=== PATIENT | female | born 2000 | race Caucasian/White ===

== ENCOUNTER 2022-05-14 12:02 | Observation (INO) ==
[2022-05-14 13:11] LABS: Appearance Urine Cloudy (Clear); Bacteria Urine Automated 1+ (Negative); Bilirubin Urine Negative (Negative); Blood Urine Trace (Negative); Color Urine Dark Yellow; Epithelial Cell Urine Auto >30 /lpf (0-5); Glucose Urine UA Negative (Negative); Ketones Urine Trace (Negative); Leukocyte Esterase Urine 1+ (Negative); Nitrite Urine Negative (Negative); Protein Urine 1+ (Negative); Specific Gravity Urine 1.031 (1.000-1.030); Urobilinogen Urine Negative (Negative); WBC Urine Automated >30 /hpf (0-5); pH Urine 5.5 (4.5-7.5)
[2022-05-14 13:17] LABS: Albumin Globulin Ratio 1.2 (0.9-2); Albumin Level 4.1 gm/dl (3.4-5.0); BUN Creatinine Ratio 10.8 (10-20); Bilirubin,Total 0.5 mg/dl (0.2-1.0); Calcium 9.3 mg/dl (8.5-10.1); Creatinine Clr Calc Pharmacy 151.6 ml/min; Est GFR (African American) 116.8 ml/min; Est GFR (Non-African American) 100.8 ml/min; Globulin 3.4 gm/dl (2.5-4.0); Potassium 4.2 mmol/L (3.5-5.1); Total Protein 7.5 gm/dl (6.0-8.3)
[2022-05-14] MEDS ORDERED: SODIUM CHLORIDE 0.9% 1000ML 2,000 ML IV ONE (14:49)
[2022-05-14] MEDS ORDERED: cefTRIAXone SODIUM 2,000 MG/70 ML BAG IV STA (14:49)
--- NOTE | 2022-05-14 14:51 | Emergency Department Note ---
Impression & Plan Sepsis, Acute pyelonephritis, Leukocytosis ED Provider Note NAME: ADRIANA DILL AGE: 22 SEX: F : 2000 ARRIVES VIA: Walk-In INFORMANT: Patient ED PROVIDER(S): Anshu Robbins DO CHIEF COMPLAINT: right flank pain and urinary symptoms HPI: Patient is a 13-year-old female who presents the ER for dysuria, urgency, and frequency which started back on Wednesday. She been having right flank pain on Wednesday. Fever started yesterday of 101. She was seen at [facility] located [facility] and [facility] in. She denies any headache or change in vision. No chest pain or shortness of breath. She admits to dysuria, urgency, frequency which has been getting worse. She was tachycardic at [facility], located within [facility]. She was referred in. She has some right flank/right upper quadrant abdominal pain. Symptoms do not change with eating or drinking. No other exacerbating or remitting factors. PAST MEDICAL HISTORY:See Below PAST SURGICAL HISTORY:See Below FAMILY HISTORY:See Below SOCIAL HISTORY:See Below HOME MEDICATIONS:See Below ALLERGIES:See Below VITALS:See Below PHYSICAL EXAMINATION: GENERAL: Sitting up in bed, alert, well appearing, well nourished, no distress, non-toxic EYE EXAM: normal conjunctiva. OROPHARYNX: no exudate, no erythema, lips, buccal mucosa, and tongue normal and mucous membranes are moist NECK: supple, no nuchal rigidity, no adenopathy, non-tender LUNGS: Clear to auscultation. Normal chest wall mechanics HEART: no murmurs, S1 normal and S2 normal ABDOMEN: abdomen soft, non-tender, normo-active bowel sounds, no masses, no rebound or guarding. BACK: Back is symmetrical on inspection and there is no deformity, no midline tenderness, no CVA tenderness. UPPER EXTREMITIES: upper extremities are grossly normal. LOWER EXTREMITIES: No pitting edema. NEURO EXAM: Normal sensorium, cranial nerves II-XII grossly intact, normal speech, no gross weakness of arms, no gross weakness of legs. MEDICAL DECISION MAKING: Patient is a 22-year-old female who presents the ER with above-stated complaint. IV was established blood work was obtained. Labs show leukocytosis 17,000. No significant anemia. BMP along with LFTs bilirubin was unremarkable. UA was contaminated. COVID was negative. 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 This was reviewed with Dr. Orozco from urology. He notes this is likely chronic. Patient was given IV antibiotics IV fluids and updated at bedside. Discussed case with Dr. Aubrey Lacey for further evaluation and admission. Patient was updated at bedside. External records were reviewed from [facility]. Triage Nursing notes reviewed. Limited review of prior medical records performed Vital Signs: reviewed and remarkable for HTN and tachy Differential diagnosis: Differential diagnoses includes but is not limited to gastritis, peptic ulcer disease, GERD, gallbladder disease, pancreatitis, small bowel obstruction, appendicitis, diverticulitis, hernia, urinary tract infection, torsion, pregna ncy/ectopic (if female), perforation, trauma, infectious. ER treatment provided: See below Diagnostics interpreted by me include EKG and cardiac monitoring as listed below: -Cardiac Monitoring: An order was placed for continuous cardiac monitoring. The monitor shows a rate of 119 with sinus rhythm. -ECG: none -Laboratory studies:Interpreted by me as stated above in MDM and shown below. Imaging studies: Xrays: As interpreted by me:none CTs show: CT abdomen pelvis per my read showed no obvious kidney stones Consultation(s): As described above discussed with Dr. Orozco from urology who recommended IV antibiotics Discussed with Dr. Aubrey Lacey from [facility] for further treatment and discussed presentation work-up and current management Procedures:none Critical Care: None Past Med/Surg History Surgical History History of wisdom tooth extraction Social History Feels Safe at Home: Yes Allergies Allergies Allergy/AdvReac Type Severity Reaction Status Date / Time No Known Allergies Allergy Verified 05/14/22 16:44 Home Meds Home Medications Medication Instructions Recorded Confirmed famotidine 20 mg tablet 0 mg PO DAILY PRN 05/14/22 05/14/22 HEARTBURN/INDIGESTION norethindrone 1 mg-ethinyl 1 tab PO DAILY 05/14/22 05/14/22 estradiol 20 mcg (21)-iron 75 mg (7) tablet (June FE 05/08 (28)) Results & Data (ED) Vital Signs Vital Signs - 24 hr 05/14/22 12:12 05/14/22 16:52 05/14/22 16:53 Temperature 36.8 C Temperature Source Temporal Artery Scan Pulse Rate 128 H Pulse Rate [Finger] 118 H Pulse Rate from SpO2 Sensor 113 H Pulse Rhythm [Finger] Regular Pulse Strength [Finger] Normal Respiratory Rate 18 20 Respiratory Effort / Characteristics Non-Labored Spontaneous Respiratory Depth Normal Respiratory Pattern Regular Blood Pressure 155/92 H Blood Pressure [Left Arm] 124/79 Blood Pressure Mean 113 Blood Pressure Mean [Left Arm] 94 Blood Pressure Position [Left Arm] Lying Pulse Oximetry 94 99 99 Oxygen Delivery Method Room Air Room Air Room Air Sepsis Recent Fever Within 48 Hours No Sepsis New/Unexplained Change in Mental Status No Sepsis Action Taken by Nursing No Action Required 05/14/22 17:00 05/14/22 17:30 05/14/22 17:30 Temperature Temperature Source Pulse Rate Pulse Rate [Finger] Pulse Rate from SpO2 Sensor 117 H 119 H Pulse Rhythm [Finger] Pulse Strength [Finger] Respiratory Rate Respiratory Effort / Characteristics Respiratory Depth Respiratory Pattern Blood Pressure 133/91 Blood Pressure [Left Arm] Blood Pressure Mean 105 Blood Pressure Mean [Left Arm] Blood Pressure Position [Left Arm] Pulse Oximetry 99 98 Oxygen Delivery Method Room Air Room Air Sepsis Recent Fever Within 48 Hours Sepsis New/Unexplained Change in Mental Status Sepsis Action Taken by Nursing Laboratory Data 05/14/22 12:40 05/14/22 12:40 Lab Results 05/14/22 05/14/22 05/14/22 Range/Units 12:40 12:40 12:40 WBC Cancelled RBC Cancelled Hgb Cancelled Hct Cancelled MCV Cancelled MCH Cancelled MCHC Cancelled RDW Std Deviation Cancelled RDW Coeff of [place] Cancelled Plt Count Cancelled MPV Cancelled Immature Gran % (Auto) Cancelled Neut % (Auto) Cancelled Lymph % (Auto) Cancelled [place] % (Auto) Cancelled Eos % (Auto) Cancelled Baso % (Auto) Cancelled Neut # (Auto) Cancelled Lymph # (Auto) Cancelled [place] # (Auto) Cancelled Eos # (Auto) Cancelled Baso # (Auto) Cancelled Immature Gran # (Auto) Cancelled Absolute Nucleated RBC Cancelled Nucleated RBC % (auto) Cancelled Neutrophils % (Manual) Cancelled Band Neutrophils % Cancelled Lymphocytes % (Manual) Cancelled Prolymphocyte % Cancelled Reactive Lymphs % (Man) Cancelled Monocytes % (Manual) Cancelled Eosinophils % (Manual) Cancelled Basophils % (Manual) Cancelled Metamyelocytes % (Man) Cancelled Myelocytes % (Man) Cancelled Promyelocytes % (Man) Cancelled Blast Cells % (Manual) Cancelled Plasma Cell % (Manual) Cancelled Other Cells % Cancelled Nucleated RBC % Cancelled Neutrophils # (Manual) Cancelled Band Neutrophils # Cancelled Total Absolute Neuts Cancelled Lymphocytes # (Manual) Cancelled Prolymphocyte # Cancelled Reactive Lymphs # Cancelled Total Abs Lymphocytes Cancelled Monocytes # (Manual) Cancelled Eosinophils # (Manual) Cancelled Basophils # (Manual) Cancelled Metamyelocytes # (Man) Cancelled Myelocytes # (Manual) Cancelled Promyelocytes # (Man) Cancelled Blast Cells # (Man) Cancelled Plasma Cell # (Manual) Cancelled Other Cells # Cancelled Nucleated RBCs # (Man) Cancelled Hypersegmented Neuts Cancelled Hyposegmented Neuts Cancelled Hypogranular Neuts Cancelled Large Granular Lymphs Cancelled # Lrg Granular Lymphs Cancelled Hairy Cells Cancelled Smudge Cells Cancelled Toxic Granulation Cancelled Toxic Vacuolation Cancelled Dohle Bodies Cancelled Sim Rods Cancelled Platelet Estimate Cancelled Hypogranular Platelets Cancelled Clumped Platelets Cancelled Giant Platelets Cancelled Platelet Satelliting Cancelled RBC Morphology Cancelled Polychromasia Cancelled Hypochromasia Cancelled Poikilocytosis Cancelled Basophilic Stippling Cancelled Anisocytosis Cancelled Microcytosis Cancelled Macrocytosis Cancelled Spherocytes Cancelled Pappenheimer Bodies Cancelled Sickle Cells Cancelled Target Cells Cancelled Tear Drop Cells Cancelled Ovalocytes Cancelled Stomatocytes Cancelled [place] Bodies Cancelled Echinocytes Cancelled Acanthocytes (Spur) Cancelled Rouleaux Cancelled RBC Agglutinates Cancelled Schistocytes Cancelled Sezary Cell Cancelled Sodium 134 L (136-145) mmol/L Potassium 4.2 (3.5-5.1) mmol/L Chloride 103 (98-107) mmol/L Carbon Dioxide 23 (21-32) mmol/L Anion Gap 8 (3-11) BUN 9 (6-23) mg/dl Creatinine 0.83 (0.6-1.2) mg/dl Est Cr Clr Drug Dosing 151.6 ml/min Est GFR ( Amer) 116.8 ml/min Est GFR (Non-Af Amer) 100.8 ml/min BUN/Creatinine Ratio 10.8 (10-20) Glucose 117 H (70-99(Fasting)) mg/dl Lactate (0.4-2.0) mmol/L Calcium 9.3 (8.5-10.1) mg/dl Total Bilirubin 0.5 (0.2-1.0) mg/dl AST 18 (13-39) U/L ALT 18 (7-52) U/L Alkaline Phosphatase 71 (34-104) U/L Total Protein 7.5 (6.0-8.3) gm/dl Albumin 4.1 (3.4-5.0) gm/dl Globulin 3.4 (2.5-4.0) gm/dl Albumin/Globulin Ratio 1.2 (0.9-2) Urine Color Dark Yellow Urine Appearance Cloudy A (Clear) Urine pH 5.5 (4.5-7.5) Ur Specific [place] 1.031 H (1.000-1.030) Urine Protein 1+ H (Negative) Urine Glucose (UA) Negative (Negative) Urine Ketones Trace H (Negative) Urine Blood Trace H (Negative) Urine Nitrite Negative (Negative) Urine Bilirubin Negative (Negative) Urine Urobilinogen Negative (Negative) Ur Leukocyte Esterase 1+ H (Negative) Urine WBC (Auto) >30 H (0-5) /hpf Urine RBC (Auto) 5-10 H (0-4) /hpf U Hyaline Cast (Auto) 10-30 H (0-5) /lpf U Epithel Cells (Auto) >30 H (0-5) /lpf Urine Bacteria (Auto) 1+ H (Negative) SARS-CoV-2, RNA, NAAT (NEGATIVE) Blood Parasites ID Cancelled 05/14/22 05/14/22 05/14/22 Range/Units 15:54 15:54 17:09 WBC 17.23 H RBC 4.86 Hgb 14.0 Hct 42.1 MCV 86.6 MCH 28.8 MCHC 33.3 RDW Std Deviation 42.7 RDW Coeff of [place] 13.4 Plt Count 257 MPV 10.1 Immature Gran % (Auto) 0.5 Neut % (Auto) 81.5 Lymph % (Auto) 12.1 Antelope % (Auto) 5.5 Eos % (Auto) 0.1 Baso % (Auto) 0.3 Neut # (Auto) 14.05 H Lymph # (Auto) 2.08 [place] # (Auto) 0.95 H Eos # (Auto) 0.01 Baso # (Auto) 0.06 Immature Gran # (Auto) 0.08 Absolute Nucleated RBC Nucleated RBC % (auto) Neutrophils % (Manual) Band Neutrophils % Lymphocytes % (Manual) Prolymphocyte % Reactive Lymphs % (Man) Monocytes % (Manual) Eosinophils % (Manual) Basophils % (Manual) Metamyelocytes % (Man) Myelocytes % (Man) Promyelocytes % (Man) Blast Cells % (Manual) Plasma Cell % (Manual) Other Cells % Nucleated RBC % Neutrophils # (Manual) Band Neutrophils # Total Absolute Neuts Lymphocytes # (Manual) Prolymphocyte # Reactive Lymphs # Total Abs Lymphocytes Monocytes # (Manual) Eosinophils # (Manual) Basophils # (Manual) Metamyelocytes # (Man) Myelocytes # (Manual) Promyelocytes # (Man) Blast Cells # (Man) Plasma Cell # (Manual) Other Cells # Nucleated RBCs # (Man) Hypersegmented Neuts Hyposegmented Neuts Hypogranular Neuts Large Granular Lymphs # Lrg Granular Lymphs Hairy Cells Smudge Cells Toxic Granulation Toxic Vacuolation Dohle Bodies Sim Rods Platelet Estimate Hypogranular Platelets Clumped Platelets Giant Platelets Platelet Satelliting RBC Morphology Polychromasia Hypochromasia Poikilocytosis Basophilic Stippling Anisocytosis Microcytosis Macrocytosis Spherocytes Pappenheimer Bodies Sickle Cells Target Cells Tear Drop Cells Ovalocytes Stomatocytes [place] Bodies Echinocytes Acanthocytes (Spur) Rouleaux RBC Agglutinates Schistocytes Sezary Cell Sodium (136-145) mmol/L Potassium (3.5-5.1) mmol/L Chloride (98-107) mmol/L Carbon Dioxide (21-32) mmol/L Anion Gap (3-11) BUN (6-23) mg/dl Creatinine (0.6-1.2) mg/dl Est Cr Clr Drug Dosing ml/min Est GFR ( Amer) ml/min Est GFR (Non-Af Amer) ml/min BUN/Creatinine Ratio (10-20) Glucose (70-99(Fasting)) mg/dl Lactate 1.1 (0.4-2.0) mmol/L Calcium (8.5-10.1) mg/dl Total Bilirubin (0.2-1.0) mg/dl AST (13-39) U/L ALT (7-52) U/L Alkaline Phosphatase (34-104) U/L Total Protein (6.0-8.3) gm/dl Albumin (3.4-5.0) gm/dl Globulin (2.5-4.0) gm/dl Albumin/Globulin Ratio (0.9-2) Urine Color Urine Appearance (Clear) Urine pH (4.5-7.5) Ur Specific [place] (1.000-1.030) Urine Protein (Negative) Urine Glucose (UA) (Negative) Urine Ketones (Negative) Urine Blood (Negative) Urine Nitrite (Negative) Urine Bilirubin (Negative) Urine Urobilinogen (Negative) Ur Leukocyte Esterase (Negative) Urine WBC (Auto) (0-5) /hpf Urine RBC (Auto) (0-4) /hpf U Hyaline Cast (Auto) (0-5) /lpf U Epithel Cells (Auto) (0-5) /lpf Urine Bacteria (Auto) (Negative) SARS-CoV-2, RNA, NAAT NEGATIVE (NEGATIVE) Blood Parasites ID Administered Medications Discontinued Medications Sodium Chloride (Nss 1000ml) 2,000 mls @ 999 mls/hr IV .Q2H1M ONE Stop: 05/14/22 16:49 Last Infusion: 05/14/22 19:27 Dose: 0 mls/hr Documented By: [id number] Admin: 05/14/22 16:43 Dose: 999 mls/hr Documented By: [id number] Ceftriaxone Sodium (Rocephin) 2,000 mg in 70 mls @ 140 mls/hr IV NOW STA Stop: 05/14/22 15:18 Last Infusion: 05/14/22 19:27 Dose: 0 mls/hr Documented By: [id number] Admin: 05/14/22 16:43 Dose: 140 mls/hr Documented By: [id number] Ioversol (Optiray 350 100ml) 88 ml IV ONCE ONE Stop: 05/14/22 15:25 Last Admin: 05/14/22 15:24 Dose: 88 ml Documented By: [email or web address] Imaging Data Radiologist's Impression: Abdomen/Pelvis CT 05/14/22 14:[address] WITH IV CONTRAST CT DOSE: 1763.17 mGy.cm HISTORY: Acute right-sided flank pain with urinary tract infection and sepsis. r flank pain sepsis TECHNIQUE: Multiaxial CT images of the abdomen and pelvis were performed following the IV administration of 86 cc of Optiray, A dose lowering technique was utilized adhering to the principles of ALARA. COMPARISON STUDY: None. FINDINGS: Streak artifact from nipple jewelry. No acute process identified within the imaged lower chest. No pneumatosis or pneumoperitoneum. Unremarkable spleen, pancreas, gallbladder and adrenal glands. Hepatomegaly with hepatic steatosis. Patency of the hepatic and portal veins. Heterogeneous enhancement of the right kidney with mild perinephric inflammatory stranding. Malrotation of the left kidney. There is a subcapsular fluid collection within the left kidney measuring 11.5 x 3.5 x 9.1 cm demonstrating a few peripheral calcifications. No hydronephrosis. Partial distention of the urinary bladder. Unremarkable uterus and adnexa. Aorta and IVC are unremarkable. There is no lymphadenopathy identified. No bowel obstruction or bowel wall thickening. Subcentimeter gastrohepatic lymph nodes measure up to 9 mm. Noninflamed appendix. No ascites or mesenteric inflammation. Unremarkable soft tissues. No acute fracture. IMPRESSION: 1. Findings compatible with right-sided pyelonephritis. 2. No urolith or hydronephrosis. 3. 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 Mild peripheral calcifications are suggestive of chronic etiology. 4. No bowel obstruction or bowel wall thickening. Normal appendix. 5. Hepatic steatosis. ACT 112: Negative or not required by law. The above report was generated using voice recognition software. It may contain grammatical, syntax or spelling errors. Electronically signed by: Lamberto Howard M.D. 05/14/2022 3:45 PM Discharge Plan Visit Data Chief Complaint: Illness Stated Complaint: TACHYCARDIA, FEVER, CHILLS ED Provider: Anshu Robbins Discharge Problem: Sepsis, Acute pyelonephritis, Leukocytosis Patient Disposition: Admitted As Inpatient Discharge Instructions Interventions: ED Discharge Assessment Last Done: 05/14/22 19:50
[2022-05-14] MEDS ORDERED: OPTIRAY 350 100ml IV ONE (15:24)
--- NOTE | 2022-05-14 15:46 | CT Scan Report ---
ABDOMEN AND PELVIS CT WITH IV CONTRAST CT DOSE: 1763.17 mGy.cm HISTORY: Acute right-sided flank pain with urinary tract infection and sepsis. r flank pain sepsis TECHNIQUE: Multiaxial CT images of the abdomen and pelvis were performed following the IV administrat ion of 86 cc of Optiray, A dose lowering technique was utilized adhering to the principles of ALARA. COMPARISON STUDY: None. FINDINGS: Streak artifact from nipple jewelry. No acute process identified within the imaged lower ch est. No pneumatosis or pneumoperitoneum. Unremarkable spleen, pancreas, gallbladder and adrenal gland s. Hepatomegaly with hepatic steatosis. Patency of the hepatic and portal veins. Heterogeneous enhancement of the right kidney with mild perinephric inflammatory stranding. Malrotati on of the left kidney. There is a subcapsular fluid collection within the left kidney measuring 11.5 x 3.5 x 9.1 cm demonstrating a few peripheral calcifications. No hydronephrosis. Partial distention o f the urinary bladder. Unremarkable uterus and adnexa. Aorta and IVC are unremarkable. There is no ly mphadenopathy identified. No bowel obstruction or bowel wall thickening. Subcentimeter gastrohepatic lymph nodes measure up to 9 mm. Noninflamed appendix. No ascites or mesenteric inflammation. Unremarkable soft tissues. No acut e fracture. IMPRESSION: 1. Findings compatible with right-sided pyelonephritis. 2. No urolith or hydronephrosis. 3. 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 Mild peripheral calcifica tions are suggestive of chronic etiology. 4. No bowel obstruction or bowel wall thickening. Normal appendix. 5. Hepatic steatosis. ACT 112: Negative or not required by law. The above report was generated using voice recognition software. It may contain grammatical, syntax o r spelling errors. Electronically signed by: Lamberto Howard M.D. 05/14/2022 3:45 PM
[2022-05-14 16:21] LABS: Basophils # (auto) 0.06 K/uL (0-0.2); Basophils % (auto) 0.3 %; Eosinophils # (auto) 0.01 K/uL (0-0.50); Eosinophils % (auto) 0.1 %; Hematocrit (blood only) 42.1 % (37.0-47.0); Immature Granulocytes # (auto) 0.08 K/uL (0.01-0.20); Immature Granulocytes % (auto) 0.5 %; Lymphocytes # (auto) 2.08 K/uL (1.2-3.4); Lymphocytes % (auto) 12.1 %; Mean Corpuscular Hemoglobin 28.8 pg (25.0-34.0); Mean Corpuscular Hgb Conc 33.3 g/dL (32.0-36.0); Mean Corpuscular Volume 86.6 fL (80.0-100.0); Mean Platelet Volume 10.1 fL (9.4-12.4); Monocytes # (auto) 0.95 K/uL (0.11-0.59); Monocytes % (auto) 5.5 %; Neutrophils # (auto) 14.05 K/uL (1.40-6.50); Neutrophils % (auto) 81.5 %; Platelet Count 257 K/uL (130-400); RDW Coefficient of Variation 13.4 % (11.5-14.5); RDW Standard Deviation 42.7 fL (36.4-46.3); Red Blood Count 4.86 M/uL (4.20-5.40); White Blood Count 17.23 K/ul (4.8-10.8)
--- NOTE | 2022-05-14 17:20 | History & Physical Report ---
Date of Service May 14, 2022 Assessment & Plan (1) Acute pyelonephritis: Plan: Ceftriaxone 2g IV daily Follow up blood and urine cultures Left kidney 9.1cm Subscapular fluid collection - consult urology (2) Sepsis: Plan: SIRS criteria met with tachycardia and increased white blood count Lactate 1.1 Follow-up blood and urine cultures Plan VTE prophylaxis - low risk Diet - regular Disposition - admit to [facility] Admission and Anticipated Discharge Date Admission Date: May 14, 2022 History of Present Illness Chief Complaint: Urinary symptoms Primary Care Provider: NO PCP Bismark Galan is a 22 year old female who presents to the ER with fever, chills, frequent urination, burning and bilateral flank pain for the last week. Progressively getting worse. She [facility] and was referred to the emergency room due to her heart rates of 130 bpm. No previous multiple resistant organisms. Non-smoker. Occasional alcohol. Allergies Allergy/AdvReac Type Severity Reaction Status Date / Time No Known Allergies Allergy Verified 05/14/22 16:44 Home Medications Medication Instructions Recorded Confirmed Type famotidine 20 mg tablet 0 mg PO DAILY PRN 05/14/22 05/14/22 History HEARTBURN/INDIGESTION norethindrone 1 mg-ethinyl 1 tab PO DAILY 05/14/22 05/14/22 History estradiol 20 mcg (21)-iron 75 mg (7) tablet (05/08 (28)) Past Med/Surg History Medical History (Updated 05/15/22 @ 01:20 by Aubrey Lacey MD) No significant past medical history Surgical History History of wisdom tooth extraction Social History Smoking Status: Never smoker Hx Alcohol Use: No Hx Substance Use: No Preferred Language: Italian Communication Ability: Effective Tactical/Mobile Watch Officer Required: No Beliefs That Will Affect Care: None Current Living Situation: Other Current Living Situation Comment: ROOMMATE Other Information That Helps Us Care for You: No Feels Safe at Home: Yes Safety Concerns: Feels Safe At This Time Assistive Devices: Glasses Review of Systems Review of Systems: All systems reviewed & are unremarkable except as noted in HPI & below Physical Exam Constitutional: WD/WN, vitals as above Respiratory: normal respiratory effort, lungs clear to auscultation Cardiovascular: Rate/Rhythm: regular rhythm and + tachycardic Extremities: normal capillary refill; no pedal edema Gastrointestinal (Abdomen): Percussion/Palpation: + abdomen tender (suprapubic) and abdomen soft; no guarding and abdomen not rigid Skin: no rashes, warm and dry Psychiatric: A+Ox3, euthymic affect Genitourinary: + CVA tenderness (bilateral) Results & Data Results & Data ([facility]) Vital Signs (Past 12 Hours) Vital Signs Temp Pulse Pulse Resp BP BP Pulse Ox 05/14/22 16:52 118 H 20 124/79 99 05/14/22 12:12 36.8 C 128 H 18 155/92 H 94 O2 Del Method 05/14/22 16:52 Room Air 05/14/22 12:12 Room Air Laboratory Results Abnormal lab results 05/14/22 05/14/22 05/14/22 Range/Units 12:40 12:40 15:54 WBC 17.23 H (4.8-10.8) K/ul Neut # (Auto) 14.05 H (1.40-6.50) K/uL [place] # (Auto) 0.95 H (0.11-0.59) K/uL Sodium 134 L (136-145) mmol/L Glucose 117 H (70-99(Fasting)) mg/dl Urine Appearance Cloudy A (Clear) Ur Specific [place] 1.031 H (1.000-1.030) Urine Protein 1+ H (Negative) Urine Ketones Trace H (Negative) Urine Blood Trace H (Negative) Ur Leukocyte Esterase 1+ H (Negative) Urine WBC (Auto) >30 H (0-5) /hpf Urine RBC (Auto) 5-10 H (0-4) /hpf U Hyaline Cast (Auto) 10-30 H (0-5) /lpf U Epithel Cells (Auto) >30 H (0-5) /lpf Urine Bacteria (Auto) 1+ H (Negative) Diagnostic Findings ABDOMEN AND PELVIS CT WITH IV CONTRAST CT DOSE: 1763.17 mGy.cm HISTORY: Acute right-sided flank pain with urinary tract infection and sepsis. r flank pain sepsis TECHNIQUE: Multiaxial CT images of the abdomen and pelvis were performed following the IV administration of 86 cc of Optiray, A dose lowering technique was utilized adhering to the principles of ALARA. COMPARISON STUDY: None. FINDINGS: Streak artifact from nipple jewelry. No acute process identified within the imaged lower chest. No pneumatosis or pneumoperitoneum. Unremarkable spleen, pancreas, gallbladder and adrenal glands. Hepatomegaly with hepatic steatosis. Patency of the hepatic and portal veins. Heterogeneous enhancement of the right kidney with mild perinephric inflammatory stranding. Malrotation of the left kidney. There is a subcapsular fluid collection within the left kidney measuring 11.5 x 3.5 x 9.1 cm demonstrating a few peripheral calcifications. No hydronephrosis. Partial distention of the urinary bladder. Unremarkable uterus and adnexa. Aorta and IVC are unremarkable. There is no lymphadenopathy identified. No bowel obstruction or bowel wall thickening. Subcentimeter gastrohepatic lymph nodes measure up to 9 mm. Noninflamed appendix. No ascites or mesenteric inflammation. Unremarkable soft tissues. No acute fracture. IMPRESSION: 1. Findings compatible with right-sided pyelonephritis. 2. No urolith or hydronephrosis. 3. 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 Mild peripheral calcifications are suggestive of chronic etiology. 4. No bowel obstruction or bowel wall thickening. Normal appendix. 5. Hepatic steatosis. Medications Administered ER medications given: NSS 2L bolus Ceftriaxone 2 g IV ECG Indication: tachycardia Rate (beats per minute): 120 Rhythm: sinus tachycardia Findings: no acute ischemic change Comparison ECG Date: no prior available Code Status & VTE Plan Code Status Full VTE Prophylaxis Plan VTE Prophylaxis will be ordered: No PG Care Time/CCT Total # of Minutes Spent Total Time Spent with Patient: Total time spent is greater than 50% in coordination of care (as documented) at patient's floor/unit and/or counseling patient: Coding Level of Care Code 67862 INT INP/OBS CARE 2/55MIN Diagnoses Acute pyelonephritis N10 Sepsis A41.9
[2022-05-14] MEDS ORDERED: FAMOTIDINE 20 MG TAB PO PRN (19:50)
[2022-05-14] MEDS ORDERED: ONDANSETRON INJ 2 MG/ML 2 ML VIAL IV PRN (19:50)
[2022-05-14] MEDS: SODIUM CHLORIDE 0.9% 1000ML 1,000 ML IV SCH (21:36)
[2022-05-15] MEDS: ACETAMINOPHEN 325 MG TAB PO PRN ×4 (00:08→21:11)
--- NOTE | 2022-05-15 02:47 | Urology Consultation ---
Date of Consultation May 15, 2022 Assessment & Plan (1) Acute pyelonephritis: Patient has been admitted on the hospitalist service. She is currently receiving antibiotics in form of Rocephin for pyelonephritis. Appropriate cultures have been sent. Antibiotics can be tailored based on culture results She is currently receiving intravenous fluids which should continue Recommend following serial labs Concerning the patient's left subcapsular fluid collection this collection does appear chronic according to the interpreting radiologist. The etiology of this is unclear. The patient says that she has never with this that she has never had any prior scans. It is unlikely that this fluid collection is a hematoma as the patient has not had any trauma to this area and she does not have any decrease in her hemoglobin or hematocrit. Due to the chronic appearance of this fluid collection this makes it unlikely to be an abscess particularly the patient has no symptomatology on the side of the fluid. We will monitor the patient's clinical response and if there is ongoing concern that this may be an abscess consideration may be given to sampling this fluid. Additional recommendations be forthcoming based on her response to her current treatment and her clinical course as it unfolds History of Present Illness Reason for Consultation: 1. Pyelonephritis 2. 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 Patient notes approximately 4 days ago she developed some dysuria. She denied any hematuria but reported the inability to empty her bladder completely along with urinary frequency. She did not seek medical attention until approximately 2 days later when the patient began having fevers that were as high as 100.8. In addition the patient noted some shakes and chills along with sweats. No nausea or vomiting was reported the patient began to develop some right-sided flank pain and some right-sided abdominal pain. She went to an urgent care center where she was noted to be tachycardic and it was recommended patient report to the emergency department for further evaluation. Patient notes that she has no history of kidney stones and has never had any urologic issues before. She has never had any abdominal surgery. She denies any falls or trauma to her back or flanks. Since admission to the hospital and presentation to the ER the patient has had labs and imaging which independent reviewed. A CT scan of the abdomen pelvis showed that patient had perinephric inflammatory stranding around the right kidney suggestive of pyelonephritis. The left kidney was noted to be malrotated and there was a subcapsular fluid collection measuring 11.5 x 3.5 x 9.1 cm. There are some peripheral calcifications noted in this fluid. There is no hydronephrosis of the left kidney. The peripheral calcifications of the fluid were suggestive of a chronic etiology. Labs include a CBC her white blood cell count was 17.2. Hemoglobin, hematocrit, and platelet count were all normal. Chemistry profile showed sodium was 134 with a normal potassium. BUN and creatinine were both normal. Lactic acid was nonelevated. There is no elevation of LFTs. Urinalysis showed cloudy urine which was negative for nitrites. 1+ leukocyte Estrace was noted on the study and there were greater than 30 white blood cells per high-power field. 1+ bacteria was noted on the study. A COVID test was negative. At the time of my interview the patient was resting comfortably in bed and she was in no distress. Allergies Allergy/AdvReac Type Severity Reaction Status Date / Time No Known Allergies Allergy Verified 05/14/22 16:44 Home Medications Medication Instructions Recorded Confirmed Type famotidine 20 mg tablet 0 mg PO DAILY PRN 05/14/22 05/14/22 History HEARTBURN/INDIGESTION norethindrone 1 mg-ethinyl 1 tab PO DAILY 05/14/22 05/14/22 History estradiol 20 mcg (21)-iron 75 mg (7) tablet (05/08 (28)) Patient History Medical History No significant past medical history Surgical History History of wisdom tooth extraction Social History Smoking Status: Never smoker Hx Alcohol Use: No Hx Substance Use: No Preferred Language: Algerian Communication Ability: Effective 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 Beliefs That Will Affect Care: None Current Living Situation: Other Current Living Situation Comment: [facility] Other Information That Helps Us Care for You: No Feels Safe at Home: Yes Safety Concerns: Feels Safe At This Time Assistive Devices: Glasses Review of Systems Constitutional: + fever, + chills and + sweats Eyes: no eye pain Ear, Nose, Mouth, Throat: no ear pain Respiratory: no cough and no dyspnea Cardiovascular: no chest pain Gastrointestinal: as per Subjective / HPI Genitourinary: as per Subjective / HPI Musculoskeletal: + back pain (Right flank) Integumentary: no rash Neurologic: no localized weakness Physical Exam Constitutional: WD/WN, vitals as above Eyes: no conjunctival abnormality ENMT: Ears: no external ear abnormality Neck: trachea midline Respiratory: normal respiratory effort; no respiratory distress and no labored breathing Cardiovascular: Rate/Rhythm: regular rate, regular rhythm and + tachycardic Vessels: dorsalis pedis pulses present and radial pulses present Gastrointestinal (Abdomen): Abdomen is rotund and soft. It is nondistended and nonrigid. There is no pain with palpation. There is no rebound tenderness or guarding. Musculoskeletal: No calf tenderness. Feet are warm and nonmottled Skin: no rashes Neurologic: moves all extremities Psychiatric: A+Ox3, euthymic affect Genitourinary: + CVA tenderness (Mild CVA tenderness on the right with percussion. No CVA tenderness on the) There is no evidence of ecchymosis or bruising of either flank. Results & Data ([facility]) Vital Signs (Past 12 Hours) Vital Signs Temp Pulse Resp BP BP Pulse Ox O2 Del Method 05/14/22 21:43 Room Air 05/14/22 21:05 37.3 C 123 H 16 125/75 100 Room Air 05/14/22 19:00 97 Room Air 05/14/22 19:00 125/73 05/14/22 18:30 97 Room Air 05/14/22 18:30 122/72 05/14/22 18:00 96 Room Air 05/14/22 18:00 106/65 05/14/22 17:30 98 Room Air 05/14/22 17:30 133/91 05/14/22 17:00 99 Room Air 05/14/22 16:53 99 Room Air 05/14/22 16:52 118 H 20 124/79 99 Room Air PG Care Time/CCT Total # of Minutes Spent Total Time Spent with Patient: Total time spent is greater than 50% in coordination of care (as documented) at patient's floor/unit and/or counseling patient: Coding Level of Care Code INP/OBS CONSULT LVL 5, 80 MIN Diagnoses Acute pyelonephritis N10
[2022-05-15] MEDS: SODIUM CHLORIDE 0.9% 1000ML 1,000 ML IV SCH (06:15)
[2022-05-15 09:42] LABS: Basophils # (auto) 0.03 K/uL (0-0.2); Basophils % (auto) 0.2 %; Hematocrit (blood only) 35.7 % (37.0-47.0); Hemoglobin 12.1 g/dl (12.0-16.0); Immature Granulocytes % (auto) 0.6 %; Lymphocytes # (auto) 2.12 K/uL (1.2-3.4); Lymphocytes % (auto) 13.7 %; Mean Corpuscular Hemoglobin 28.8 pg (25.0-34.0); Mean Corpuscular Hgb Conc 33.9 g/dL (32.0-36.0); Mean Platelet Volume 10.4 fL (9.4-12.4); Monocytes # (auto) 1.85 K/uL (0.11-0.59); Neutrophils # (auto) 11.36 K/uL (1.40-6.50); Neutrophils % (auto) 73.5 %; Platelet Count 224 K/uL (130-400); RDW Coefficient of Variation 13.7 % (11.5-14.5); RDW Standard Deviation 42.5 fL (36.4-46.3); White Blood Count 15.46 K/ul (4.8-10.8)
[2022-05-15 10:20] LABS: Calcium 8.1 mg/dl (8.5-10.1); Potassium 3.5 mmol/L (3.5-5.1)
[2022-05-15 10:26] LABS: BUN Creatinine Ratio 10.4 (10-20); Creatinine Clr Calc Pharmacy 163.4 ml/min; Est GFR (African American) 127.9 ml/min; Est GFR (Non-African American) 110.4 ml/min
--- NOTE | 2022-05-15 10:49 | Urology Progress Note ---
Date of Service May 15, 2022 Assessment & Plan (1) Acute pyelonephritis: Plan 22yo/F admitted with pyelonephritis. CT imaging on arrival demonstrated findings compatible with right-sided pyelonephritis, no obstructing stones or hydronephrosis. Malrotation of the left kidney with 9.1 cm subcapsular fluid collection also noted and mild peripheral calcifications are suggestive of chronic etiology. -Afebrile, tachycardic, but normotensive. Nontoxic-appearing. -Labs reviewed- WBC 15.46, hemoglobin 12.1, creatinine 0.77. -Urine and blood cultures pending. On IV ceftriaxone. -Voiding without issue, continue to monitor. Bladder scan prn. -No acute intervention warranted at this time. -Continue antibiotics and tailor as culture data becomes available. -Follow serial labs. -Continue supportive care. -Left subcapsular fluid collection appears chronic on imaging. The etiology of this is unclear. Due to the chronic appearance of this fluid collection this makes it unlikely to be an abscess. However, will continue to monitor the patient's clinical response and if there is ongoing concern that this may be an abscess then will need to consider transfer for drainage with IR. -Urology will follow. Admission and Anticipated Discharge Date Admission Date: May 14, 2022 Supervising Physician Co-Signing Physician Notes I have discussed Ms. Galan's case with PATRICIA Olson and agree with the above documentation. No evidence of urinary obstruction. Overall clinical picture at this point is suspicious for pyelonephritis. Subcapsular fluid on the left kidney appears simple and is unlikely to be an abscess, however if she persistently has fevers or positive cultures, there may be a role for transfer f or percutaneous drainage. For now would recommend treatment with antibiotics and close monitoring. Subjective Patient examined at bedside this AM. Awake, resting in bed on arrival. No acute distress. Reports she is feeling better, but has a headache. No fevers or chills. Denies abdominal, flank, back pain. Tolerating diet, no nausea or vomiting. Voiding without issue, denies hematuria/dysuria. Review of Systems Constitutional: as per Subjective / HPI Gastrointestinal: as per Subjective / HPI Genitourinary: as per Subjective / HPI Physical Exam Constitutional: no acute distress Respiratory: no respiratory distress and no labored breathing Neurologic: awake Psychiatric: Orientation: alert and oriented x 3 Results & Data ([facility]) Vital Signs (Past 12 Hours) Vital Signs Temp Pulse Resp BP Pulse Ox O2 Del Method 05/15/22 07:46 37.5 C 123 H 18 127/77 96 Room Air PG Care Time/CCT Total # of Minutes Spent Total Time Spent with Patient: Total time spent is greater than 50% in coordination of care (as documented) at patient's floor/unit and/or counseling patient: Coding Level of Care Code None Diagnoses Acute pyelonephritis N10
[2022-05-15] MEDS: cefTRIAXone SODIUM 2,000 MG in DEXTROSE 5% 50 ML IV SCH (14:24)
--- NOTE | 2022-05-15 15:14 | Electrocardiogram Report ---
Test Reason : Blood Pressure : / mmHG Vent. Rate : 120 BPM Atrial Rate : 120 BPM P-R Int : 146 ms QRS Dur : 066 ms QT Int : 308 ms P-R-T Axes : 046 -02 011 degrees QTc Int : 435 ms Sinus tachycardia Otherwise normal ECG No previous ECGs available Confirmed by Saeed Posada ([id number]) on 05/15/2022 3:14:01 PM Referred By: Lacy Ray Confirmed By:Bijan Posada
--- NOTE | 2022-05-15 16:21 | Hospitalist Progress Note ---
Date of Service May 15, 2022 Assessment & Plan (1) Acute pyelonephritis: Plan: Left-sided as seen on imaging. Urine culture is nondiagnostic. Blood cultures negative to date. She remains on Rocephin, day 2 . There is a subcapsular fluid collection that appears to be chronic and does not need any intervention at this time. Appreciate urology consultation and recommendations (2) Sepsis: Plan: Present on admission. Now resolved Plan VTE prophylaxis - low risk Diet - regular Disposition -probable discharge to home tomorrow, May 16, on an oral antibiotic Admission and Anticipated Discharge Date Admission Date: May 14, 2022 Subjective Alert and oriented. No acute distress. Afebrile. Urine culture is nondiagnostic. Blood cultures negative to date. She remains on Rocephin, day 2. Hopefully she can go home tomorrow, May 16, on an oral antibiotic. IV fluids taper down. Review of Systems Review of Systems: Constitutional-no fever or chills ENT-no blurred vision, no double vision, no epistaxis, no sore throat Respiratory-no cough, no wheezing, no shortness of breath Cardiac-no palpitations, no chest pain, no syncope GI-no nausea, vomiting, diarrhea, melena, hematochezia -no urinary retention, no urinary incontinence, no dysuria, no hematuria Musculoskeletal-no joint pain, no muscle tenderness Skin-no bruising, no rashes, no pruritus Neuro-no isolated weakness, no paresthesia, no weakness Psych-no depression, no anxiety Physical Exam Physical Exam: General-alert and oriented x3, no fevers, no chills HEENT-head atraumatic and normocephalic, pupils equal and reactive to light, extraocular muscles intact Neck-no lymphadenopathy or thyromegaly, trachea midline Chest-clear to auscultation percussion. No rales wheezing or rhonchi Cardiac-regular rate and rhythm, normal S1 and S2 Abdomen-normal bowel sounds, nontender, no hepatosplenomegaly Extremities-no cyanosis, clubbing, or edema Neuro-cranial nerves II through XII intact, motor and sensory function within normal limits, strength symmetrical , no focal deficits Psych-normal affect, normal mood Results & Data Results & Data ([facility]) Vital Signs (Past 12 Hours) Vital Signs Temp Pulse Resp BP Pulse Ox O2 Del Method 05/15/22 15:00 37.7 C H 98 H 18 125/81 98 Room Air 05/15/22 14:18 37.6 C H 106 H 100 Room Air 05/15/22 07:46 37.5 C 123 H 18 127/77 96 Room Air Laboratory Results 05/15/22 09:10 05/15/22 09:10 PG Care Time/CCT Total # of Minutes Spent Total Time Spent with Patient: Total time spent is greater than 50% in coordination of care (as documented) at patient's floor/unit and/or counseling patient: Coding Level of Care Code 20062 SUB INP/OBS CARE 3/50MIN Diagnoses Acute pyelonephritis N10 Sepsis A41.9
[2022-05-16 07:09] LABS: Basophils # (auto) 0.05 K/uL (0-0.2); Basophils % (auto) 0.4 %; Eosinophils # (auto) 0.14 K/uL (0-0.50); Eosinophils % (auto) 1.2 %; Hematocrit (blood only) 34.1 % (37.0-47.0); Hemoglobin 11.5 g/dl (12.0-16.0); Immature Granulocytes # (auto) 0.04 K/uL (0.01-0.20); Immature Granulocytes % (auto) 0.3 %; Lymphocytes # (auto) 3.45 K/uL (1.2-3.4); Lymphocytes % (auto) 28.4 %; Mean Corpuscular Hemoglobin 28.9 pg (25.0-34.0); Mean Corpuscular Hgb Conc 33.7 g/dL (32.0-36.0); Mean Corpuscular Volume 85.7 fL (80.0-100.0); Mean Platelet Volume 10.4 fL (9.4-12.4); Monocytes # (auto) 1.46 K/uL (0.11-0.59); Neutrophils # (auto) 7.01 K/uL (1.40-6.50); Neutrophils % (auto) 57.7 %; Platelet Count 214 K/uL (130-400); RDW Coefficient of Variation 13.5 % (11.5-14.5); RDW Standard Deviation 42.7 fL (36.4-46.3); Red Blood Count 3.98 M/uL (4.20-5.40); White Blood Count 12.15 K/ul (4.8-10.8)
[2022-05-16 07:37] LABS: Calcium 8.6 mg/dl (8.5-10.1); Potassium 3.5 mmol/L (3.5-5.1)
[2022-05-16 07:43] LABS: BUN Creatinine Ratio 8.6 (10-20); Creatinine Clr Calc Pharmacy 179.8 ml/min; Est GFR (African American) 143.5 ml/min; Est GFR (Non-African American) 123.9 ml/min
[2022-05-16] MEDS: ACETAMINOPHEN 325 MG TAB PO PRN (09:11)
--- NOTE | 2022-05-16 09:55 | Discharge Summary ---
Date of Service May 16, 2022 Admission HPI Per Admitting Provider Bismark Galan is a 22 year old female who presents to the ER with fever, chills, frequent urination, burning and bilateral flank pain for the last week. Progressively getting worse. She went to [facility] today and was referred to the emergency room due to her heart rates of 130 bpm. No previous multiple resistant organisms. Non-smoker. Occasional alcohol. Principal Diagnosis Acute right pyelonephritis, left subcapsular renal fluid collection which is chronic Discharge Exam General-alert and oriented x3, no fevers, no chills HEENT-head atraumatic and normocephalic, pupils equal and reactive to light, extraocular muscles intact Neck-no lymphadenopathy or thyromegaly, trachea midline Chest-clear to auscultation percussion. No rales wheezing or rhonchi Cardiac-regular rate and rhythm, normal S1 and S2 Abdomen-normal bowel sounds, nontender, no hepatosplenomegaly Extremities-no cyanosis, clubbing, or edema Neuro-cranial nerves II through XII intact, motor and sensory function within normal limits, strength symmetrical , no focal deficits Psych-normal affect, normal mood Discharge Data Allergies Allergy/AdvReac Type Severity Reaction Status Date / Time No Known Allergies Allergy Verified 05/14/22 16:44 Consultations 05/14/22 16:35 ED Decision to Admit Stat 05/15/22 07:00 Consult Urology Routine Ordered Studies 05/14/22 14:49 CT Abd and Pelvis [CT abd pelvis IV con only] Stat Hospital Course (1) Acute pyelonephritis: Right-sided as seen on imaging. Urine culture is nondiagnostic. Blood cultures negative to date. She remains on Rocephin, day 3 . There is a subcapsular fluid collection on the left that appears to be chronic and does not need any intervention at this time. Appreciate urology consultation and recommendations (2) Sepsis: Present on admission. Now resolved Plan VTE prophylaxis - low risk Diet - regular Disposition -discharge to home today, May 16, on ciprofloxacin Total Time Total Time Spent Total Time Spent (In Minutes): 35 minutes Discharge Plan Discharge Items Patient Disposition: Home - Self-Care Reason For Visit: SEPSIS, ACUTE PYELONEPHRITIS Discharge Diagnosis: Acute pyelonephritis, sepsis Activity: Resume your previous activity Non-emergency contact: Primary Care Provider Call non-emergency contact if: your symptoms worsen Follow-up/Referrals: PCP,NO [Primary Care Provider] - Diet: Regular Addtl Attending Provider Instructions: Take ciprofloxacin for 10 days Pending Studies at Discharge: No Stand-Alone Forms: My [employer], Smoking Cessation Medications and DC Order Prescriptions: New ciprofloxacin HCl 500 mg tablet 500 mg PO BID Qty: 20 0RF Continued norethindrone-e.estradiol-iron [05/08 (28)] 1 mg-20 mcg (21)/75 mg (7) tablet 1 tab PO DAILY famotidine 20 mg Tablet 0 mg PO DAILY PRN (Reason: HEARTBURN/INDIGESTION) Rx Instructions: PT UNSURE OF STRENGTH Discharge Orders: Discharge Order (Routine); Ordered 05/16/22 Ordered By: Lincoln Luevano Admission Data Admit Date/Time: 05/14/22 17:38 Attending Provider: Lincoln Luevano Admit Provider: Aubrey Lacey Primary Care Provider: PCP,NO Other Providers: Aubrey Lacey ; Juaquin Orozco Coding Level of Care Code HOSP INP/OBS DISCH >30 MIN Diagnoses Acute pyelonephritis N10 Sepsis A41.9
--- NOTE | 2022-05-16 10:03 | Urology Progress Note ---
Date of Service May 16, 2022 Assessment & Plan (1) Acute pyelonephritis: (2) Leukocytosis: Plan Bismark is doing well this morning. Infectious symptoms seem to be improving and cultures are negative so far. Without organism or susceptibility data to go off, will be reasonable to switch empirically to oral antibiotics. If she continues to do well I think she would be reasonable for discharge home today on 7 to 10 days worth of antibiotics. No role for urologic intervention at this time. We will arrange outpatient follow-up for further surveillance of her subcapsular fluid on the left side. Urology will sign off for now, please contact us with any questions or concerns. Admission and Anticipated Discharge Date Admission Date: May 14, 2022 Subjective Feeling well this morning Still having a little bit of right flank pain, but improving No nausea or vomiting, tolerating a diet Has been up and ambulating Denies any left flank pain Leukocytosis improving (12.15, down from 15.46 yesterday) Electrolytes within normal limits. Creatinine 0.70 Blood cultures negative at 24 hours, urine culture suspected contamination. She remains on ceftriaxone Review of Systems Review of Systems: Denies fevers or chills Gastrointestinal: No nausea or vomiting Genitourinary: Flank pain improving Physical Exam Physical Exam: Well-appearing, NAD Respiratory: Breathing comfortably on room air, no audible wheezing Gastrointestinal (Abdomen): Minimal right CVA tenderness, no left CVA tenderness Results & Data ([facility]) Vital Signs (Past 12 Hours) Vital Signs Temp Pulse Resp BP Pulse Ox O2 Del Method 05/16/22 07:44 37.1 C 87 18 150/76 H 96 Room Air 05/15/22 23:19 37.6 C H 101 H 20 124/82 96 Room Air 05/15/22 22:00 Room Air PG Care Time/CCT Total # of Minutes Spent Total Time Spent with Patient: Total time spent is greater than 50% in coordination of care (as documented) at patient's floor/unit and/or counseling patient: Coding Level of Care Code 28385 SUB INP/OBS CARE 05/13MIN Diagnoses Acute pyelonephritis N10 Leukocytosis D72.829
[2022-05-16] MEDS: cefTRIAXone SODIUM 2,000 MG in DEXTROSE 5% 50 ML IV SCH (13:57)
== END 2022-05-16 15:32 | disposition home or self-care (01) ==
LOC: ED 12:02 → INTOOBSV 17:38 → EDINP 17:38 → SUATTDRO 17:38 → 3W 19:50